=== PATIENT | female | born 1995 | race African-American/Black ===

== ENCOUNTER 2018-02-28 20:25 | Emergency (ER) | payer MEDICAID ==
[~2018-02-28] VITALS: Ht 160 cm; Wt 93.2 kg
[2018-02-28 20:26] VITALS: TEMP 99.1
[2018-02-28] MEDS ORDERED: RISPERDAL 0.20.25 MG PO (20:29)
[2018-02-28 21:02] LABS: COLLECTION METHOD CLEAN CATCH
[2018-02-28 21:07] LABS: PH 7 (5-8); URINE APPEARANCE Clear; URINE BACTERIA Rare /hpf; URINE BILIRUBIN Negative (NEGATIVE); URINE BLOOD Negative (NEGATIVE); URINE COLOR Yellow; URINE GLUCOSE Negative (NEGATIVE); URINE KETONE Negative (NEGATIVE); URINE LEUKOCYTE ESTERASE 2+ (NEGATIVE); URINE NITRATE Negative (NEGATIVE); URINE PROTEIN(semi-quant) Negative (NEGATIVE); URINE UROBILINOGEN Negative (NEGATIVE)
[2018-02-28 21:48] LABS: BASO % 0.3 % (0.0-2.0); EOS # 0.1 (0.0-0.7); EOS % 1.3 % (0-4.0); GRAN # 4.9 (1.4-6.5); GRAN % 46.7 % (42.2-75.2); HEMOGLOBIN 12.8 g/dl (12.0-15.0); LYMPH # 4.6 (1.2-3.4); LYMPH % 43.8 % (20.0-51.0); MEAN CELL VOLUME 75 fl (80.0-95.0); MEAN CORPUSCULAR HEMOGLOBIN 25 pg (26.0-32.0); MEAN CORPUSCULAR HGB CONC 33 g/dl (33.0-37.0); MEAN PLATELET VOLUME 8.8 fl (7.4-10.4); MONO # 0.8 (0.1-0.6); MONO % 7.7 % (1.7-9.3); PLATELET COUNT 420 K/mm3 (130-400); RED BLOOD COUNT 5.17 M/mm3 (4.10-5.30); REDCELL DISTRIBUTION WIDTH-CV 14.3 % (11.5-14.5)
[2018-02-28 22:01] LABS: BILIRUBIN,TOTAL 0.3 mg/dL (0.0-1.0); C-REACTIVE PROTEIN 0.7 mg/dL (0.0-0.9); CALCIUM 9.3 mg/dL (8.4-10.2); CREATININE, serum 0.79 mg/dL (0.52-1.25); POTASSIUM 3.8 mmol/L (3.4-5.0); TOTAL PROTEIN 7.6 gm/dL (6.4-8.2)
[2018-02-28] MEDS ORDERED: FLAGYL500 MG PO (22:19)
[2018-02-28] MEDS ORDERED: CIPRO 500MG TA500 MG PO (22:19)
[2018-02-28 22:36] VITALS: BP 135/64; PULSE 76
== END 2018-02-28 22:36 | disposition home or self-care (01) ==
LOC: COL.ER 20:25
PROVIDERS: Emergency Medicine
DX: N39.0 Urinary tract infection, site not specified (principal); N76.0 Acute vaginitis; A59.9 Trichomoniasis, unspecified
CPT/HCPCS: J0696